=== PATIENT | female | born 1990 | race Two or more races ===

== ENCOUNTER 2017-10-04 23:44 | Emergency (ER) | payer OTHER ==
[~2017-10-04] VITALS: Ht 165.1 cm; Wt 49.9 kg
--- NOTE | 2017-10-05 00:05 | NUR ---
DR. LINARES AT BEDSIDE FOR EVAL.
[2017-10-05] MEDS ORDERED: LORAZEPAM 1 MG TABLET ONE (00:18)
[2017-10-05] MEDS ORDERED: LORAZEPAM 1 MG TABLET PO ONE (00:30)
[2017-10-05 01:06] VITALS: BP 122/64
--- NOTE | 2017-10-05 01:21 | NUR ---
DR. LINARES AT BEDSIDE SPEAKING TO PT REGARDING POC
== END 2017-10-05 01:24 | disposition home or self-care (01) ==
LOC: ER 23:49
DX: F41.1 Generalized anxiety disorder (principal); F12.929 Cannabis use, unspecified with intoxication, unspecified
CPT/HCPCS: 99284; A4606; Z7610

== ENCOUNTER 2019-06-19 23:28 | Emergency (ER) | payer OTHER ==
[~2019-06-19] VITALS: Ht 165.1 cm; Wt 50.3 kg
[2019-06-19 23:28] VITALS: BP 129/73
== END 2019-06-20 00:50 | disposition home or self-care (01) ==
LOC: ER 23:30
DX: S16.1XXA Strain of muscle, fascia and tendon at neck level, initial encounter (principal); V49.59XA Passenger injured in collision with other motor vehicles in traffic accident, initial encounter; Y93.89 Activity, other specified; Y92.413 State road as the place of occurrence of the external cause; Y99.8 Other external cause status

== ENCOUNTER 2020-07-08 19:31 | Emergency (ER) | payer OTHER ==
[~2020-07-08] VITALS: Ht 165.1 cm; Wt 48.1 kg
--- NOTE | 2020-07-08 19:50 | NUR ---
PT BIBSELF C/O SORETHROAT THAT HAS NOT GOTTEN BETTER AFTER A VISIT TO URGENT CARE. PT WAS GIVEN AMOXICILLIN AND ROCEPHIN IM AND A STREP TEST. PT IS A&OX4 BREATHING EVENLY AND UNLABORED. PT APPEARS TEARFUL. PT HAS 20G IN RT AC. PT GIVEN BLANKET ATTACHED TO MONITOR AND POX. PT HAS CALL LIGHT WITHIN REACH. WILL CONTINUE TO MONITOR
[2020-07-08] MEDS ORDERED: KETOROLAC TROMETHAMINE INJ 30 MG/ML VIAL ONE (20:02)
[2020-07-08] MEDS ORDERED: DEXAMETHASONE SOD PHOSPHATE 10 MG/ML VIAL ONE (20:03)
[2020-07-08] MEDS: IV NS 0.9% 1,000 ML BAG IV ONE (20:10)
[2020-07-08] MEDS: KETOROLAC TROMETHAMINE INJ 30 MG/ML VIAL IV ONE (20:10)
[2020-07-08] MEDS: DEXAMETHASONE SOD PHOSPHATE 4 MG/ML VIAL IV ONE (20:15)
--- NOTE | 2020-07-08 21:10 | NUR ---
Patient discharged to home in stable condition. Written and verbal after care instructions given. Patient verbalizes understanding of instruction. IV removed. Catheter intact and site benign. Pressure and 4x4 applied to site. No bleeding noted. Pt ambulatory with a steady gait
[2020-07-08 21:17] VITALS: BP 125/70
== END 2020-07-08 21:10 | disposition home or self-care (01) ==
LOC: ER 19:31
DX: J03.90 Acute tonsillitis, unspecified (principal); Z20.822 Contact with and (suspected) exposure to COVID-19; R00.0 Tachycardia, unspecified
CPT/HCPCS: 96361; 96374; 96375; 99284; C9803; J1100; J1885; J7030; U0003

== ENCOUNTER 2023-03-01 21:23 | Emergency (ER) | payer OTHER ==
[2023-03-02] MEDS ORDERED: IBUP-1955 PO (12:23)
== END 2023-03-02 00:13 | disposition left against medical advice (07) ==
LOC: ER 21:38
DX: Z53.21 Procedure and treatment not carried out due to patient leaving prior to being seen by health care provider (principal)

== ENCOUNTER 2023-03-02 09:45 | Emergency (ER) | payer OTHER ==
[~2023-03-02] VITALS: Ht 154.9 cm; Wt 47.6 kg
[2023-03-02] MEDS ORDERED: IBUP-1955 PO (12:23)
[2023-03-02 12:54] VITALS: BP 110/68; TEMP 98; O2SAT 96
== END 2023-03-02 12:55 | disposition home or self-care (01) ==
LOC: ER 10:17
DX: M25.562 Pain in left knee (principal)
CPT/HCPCS: 73564-TC